=== PATIENT | male | born 1965 | race African-American/Black ===

== ENCOUNTER 2017-02-12 06:42 | Inpatient (IN) | payer OTHER ==
[2017-02-10 15:09] LABS: HEMATOCRIT 41.1 % (40.0-51.0); HEMOGLOBIN 14.1 g/dL (13.6-17.8)
[2017-02-10 15:28] LABS: CALCIUM, SERUM 9.7 MG/DL (8.5-10.4); CHLORIDE, SERUM 107 MMOL/L (96-112); CO2 (CARBON DIOXIDE) 33 MMOL/L (24-34); CREATININE 1.31 MG/DL (0.70-1.30); GFR AFRICAN AMERICAN 72 ML/MIN (>=60); GFR NON AFRICAN AMERICAN 62 ML/MIN (>=60); GLUCOSE, SERUM 104 MG/DL (60-99); POTASSIUM, SERUM 3.8 MMOL/L (3.5-5.3)
[2017-02-10 15:29] LABS: BUN (BLOOD UREA NITROGEN) 16 MG/DL (6-23); SODIUM, SERUM 145 MMOL/L (135-148)
--- NOTE | ~2017-02-12 | DS ---
Discharge Summary [facility] [address] [place]. [address] NAME: ELIECER BELL : 63 STATUS : DIS IN PAT#: [id number] AGE: 51 ADM/REG DATE : 02/12/17 MR#: [id number] REPORT SERV DATE: 02/24/17 DICTATED BY: WALT BARRETO II DATE: 02/23/17 REPORT STATUS : Draft TRANSCRIBED BY: RUFINO DATE: 02/23/17 Data Collection from hospitalization DISCHARGE DIAGNOSES: 1. Severe back pain-discogenic. 2. 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 3. Right greater than left lower extremity radiculopathy. 4. Recurrent stenosis, L5-S1. 5. Small chronic pseudomeningocele, L4-L5. 6. Hypertension. 7. Asthma and bronchitis. 8. Gastroesophageal reflux disease. CONSULTATIONS: None. PROCEDURES PERFORMED: Revision facetectomy for decompression of the L5 and S1 nerve roots; interbody arthrodesis, L5-S1; application of prosthetic device, L5-S1; posterolateral arthrodesis, L4-5 and L5-S1; posterior segmental instrumentation, L4-5 and L5-S1; use of local autograft, allograft substitute, and bone morphogenetic protein; use of microscope and stereotactic spinal imaging, 02/12/2017. PATHOLOGY: Spine, lumbar bone, and tissue-fibrocartilage consistent with intervertebral disk. Benign bone fragments with degenerative changes. MEDICATIONS: ProAir two puffs via inhaler as needed, Hygroton 25 mg every morning, vitamin B12 1000 mcg every morning, Valium 2 mg every six to eight hours as needed, Voltaren 75 mg daily as needed, Advair Diskus one puff via inhaler twice a day, Neurontin 600 mg every six hours, Cozaar 50 mg twice a day, Singulair 10 mg every evening, Zofran 4 mg every six hours as needed, Roxicodone 15 mg every four hours as needed, OxyContin 40 mg every 12 hours, Protonix 40 mg daily as needed. CONDITION AT DISCHARGE: Stable. DISPOSITION: The patient was discharged home on a regular diet with activities as instructed. He would follow up with me, 03/10/2017. HOSPITAL COURSE: This is a 51-year-old man, who had complained of lumbar spine-related symptoms. The pain was located in his low back with radiation down the right lower extremity with associated numbness. The patient has severe back pain that is discogenic. He has facet instability at L4-5 and L5-S1. He has a history of multiple lumbar laminectomy. He has right greater than left lower extremity radiculopathy. He has recurrent stenosis at L5-S1. Treatment options were discussed and it was elected to proceed with surgical intervention. He was admitted to the hospital at this time for further evaluation and treatment. Upon admission, the patient was taken to the operating room, where he underwent the above- mentioned procedure. He tolerated this well and there were no complications. On postop day one, he was evaluated by Physical Therapy. His leg pain had decreased. He had no focal Discharge Summary [address] [address] NAME: ELIECER BELL : 63 STATUS : DIS IN PAT#: [id number] AGE: 51 ADM/REG DATE : 02/12/17 MR#: [id number] REPORT SERV DATE: 02/24/17 DICTATED BY: WALT BARRETO II DATE: 02/23/17 REPORT STATUS : Draft TRANSCRIBED BY: RUFINO DATE: 02/23/17 deficits. On postop day two, he continued to do well. He had a normal respiratory effort. He had no leg pain. He said his legs felt great. He did have a bowel movement. Over the next couple of days, he continued to do well. Discharge planning was performed. His abdominal distention was improving. On 02/16/2017, he continued to have bowel movements. His abdominal discomfort had improved. He had no edema. Discharge instructions were given. Due to his improved and stable condition, he was discharged home with the above-stated instructions. Information collected by: Farrah Puente I submit the above information as my discharge summary. ROSA ELENA/SHAQL Walt Barreto II, M.D. / [id number] CC: Markie Perez II, DAVID K
--- NOTE | ~2017-02-12 | OP ---
Record Of Operation [facility] [address] [place]. [address] NAME: LOUIS BELL : 63 STATUS : DIS IN PAT#: [id number] AGE: 51 ADM/REG DATE : 02/12/17 MR#: [id number] REPORT SERV DATE: 02/16/17 DICTATED BY: ANTWAN BARRETO II DATE: 02/16/17 REPORT STATUS : Draft TRANSCRIBED BY: MODL DATE: 02/16/17 DATE OF PROCEDURE: 02/12/2017 PREOPERATIVE DIAGNOSES: 1. Severe back pain, diskogenic. 2. Facet instability, L4-5 and L5-S1, with history of multiple lumbar laminectomies. 3. Right greater than left lower extremity radiculopathy. 4. Recurrent stenosis, L5-S1. POSTOPERATIVE DIAGNOSES: 1. Severe back pain, diskogenic. 2. Facet instability, L4-5 and L5-S1, with history of multiple lumbar laminectomies. 3. Right greater than left lower extremity radiculopathy. 4. Recurrent stenosis, L5-S1. 5. A small chronic pseudomeningocele, L4-L5. PROCEDURE: 1. Revision facetectomy for decompression of the L5 and S1 nerve roots. 2. Interbody arthrodesis, L5-S1. 3. Application of prosthetic device, L5-S1. 4. Posterolateral arthrodesis, L4-5 and L5-S1. 5. Posterior segmental instrumentation, L4-5 and L5-S1. 6. Use of local autograft, allograft substitute, and bone morphogenic protein. 7. Use of the microscope and stereotactic spinal imaging. FLUIDS: 1500 mL LR. ESTIMATED BLOOD LOSS: 100 mL. DRAIN: One drain. COMPLICATIONS: No complications. HISTORY: This is a very friendly 51-year-old gentleman very well known to me through the years. His family member Ml also works at the hospital and is well known to me. Louis has been an excellent patient through the years and has done quite well with his surgery in the past. However, he still has been struggling with leg pain and increasing back pain following his last surgery. We had discussed fusion and even considered it at the last procedure. He was having significant back pain at that time but overall did not want to have a fusion surgery at that point. He had surgery in 2016 and overall had some temporary improvement in his leg pain. This unfortunately was short-lived, and his leg pain returned. Overall, the imaging was consistent with some residual stenosis, particularly at L5-S1 and some at L4-5, but overall, L5-S1 appeared to be his more problematic area. Specifically, this appeared to be where his back pain was coming from as he had significant disk space height loss but also the facet simply appeared to be unstable. He had now had 3 surgeries at that level, and overall, it was my opinion that the facet simply was unstable and likely Record Of Operation [place] [id number] [facility] [address] [place] [place]. [address] NAME: LOUIS BELL : 63 STATUS : DIS IN PAT#: [id number] AGE: 51 ADM/REG DATE : 02/12/17 MR#: [id number] REPORT SERV DATE: 02/16/17 DICTATED BY: ANTWAN BARRETO II DATE: 02/16/17 REPORT STATUS : Draft TRANSCRIBED BY: RUFINO DATE: 02/16/17 had been overly affected through the course of the 3 surgeries and was overall likely giving him his primary pain down the leg. The pain was more consistent with an L5 dermatomal distribution. There was also some significant disk space height loss which did increase the possibility of up-down stenosis. We discussed the risks of surgery and the benefits. Interestingly, he did recover well from the last surgery with the exception of a fairly severe ileus. He was of course concerned about this, and I discussed with him the fact that ileus could happen again and we would do everything in our power to decrease the likelihood of that. Additionally, approximately six to eight weeks after his surgery, he did have a significant soft-tissue deformity which was frankly consistent with CSF. He was seen by one of the extenders and asked if we could try aspirating this. I did so not suspecting it would be very successful, but surprisingly, the fluid although consistent with CSF that day, the soft-tissue abnormality disappeared. However, based upon that, I advised him that we may likely encounter a small tear and/or a pseudomeningocele. PROCEDURE IN DETAIL: After informed consent was obtained, the patient was brought to the operating room at his request and general anesthesia achieved. He was placed in the prone position, and the back was prepped and draped in a sterile fashion. A stereotactic spinal pin was placed into the left iliac crest and the intraoperative CT scan completed. The stereotactic guidance was then used throughout the case. At this point, the incision was made on the right side and the dissection carried down to the fascia. There was no evidence of CSF. The fascia was then incised and a quadrant retractor placed. We then placed a retractor at the L5-S1 and L4-5 levels. The microscope was now brought into place. At this point, we did see a small amount of CSF emanating from a pseudomeningocele-type membrane. This appeared to overlie the laminectomy site. At this point, the facet was now identified at L5-S1. Again, as suspected, it was unstable. The inferior facet was rather loose and almost non-existent. Interestingly, the intraoperative CT scan did show a very large osteophyte emanating from the superior facet. At this point, under the microscope, we were able to then remove the additional portion of the superior facet. This was indeed severely compressing the L5 nerve root. This also appeared to be, again as suspected, part of an up-down stenosis type situation. At this point, a large osteophyte was removed along with the facet. This appeared to be greatly decompress the L5 nerve root. The S1 nerve root itself had some compression upon it which was now alleviated with additional facet removal, but overall, the L5 nerve root appeared to be likely the problem as there was a severe amount of compression upon it with associated edema. At this point, the interbody arthrodesis was initiated with diskectomy and endplate preparation. The prosthetic device was then placed following confirmation of punctate bleeding bone. Please note, we also irrigated the disk space prior to placement of the prosthetic device. Alongside the device, we then placed allograft substitute, some local autograft, and a small portion of bone morphogenic protein. At this point, I had not seen any CSF emanating from the L5-S1 level. We then turned our attention to L4-5. At this point, we then inspected the L4-5 level. The pseudomeningocele was taken down, and there was a small tear identified of approximately 2 x 3 mm. This was in the dorsolateral aspect of the L4-5 area. However, quality of the dura appeared very Record Of Operation [address] [place] [place]. [address] NAME: LOUIS BELL : 63 STATUS : DIS IN [facility]#: [id number] AGE: 51 ADM/REG DATE : 02/12/17 MR#: [id number] REPORT SERV DATE: 02/16/17 DICTATED BY: ANTWAN BARRETO II DATE: 02/16/17 REPORT STATUS : Draft TRANSCRIBED BY: RUFINO DATE: 02/16/17 friable. I did not feel a suture repair would be likely successful. There was this defect I did not believe I could bring together with suture. At this point, I then placed a DuraGen patch. I cut and contoured the patch to fit into the defect just on the interior of the subarachnoid space. This patch appeared to now be able to hopefully contain the fluid. I then placed a separate patch on the exterior of the dura followed by a fat graft. This seemed to then apply the appropriate amount of compression over the repair site. This was done after irrigation of the entire wound. Next, we then placed DuraSeal over the repair site. At this point, we then decorticated the transverse processes of L4-L5 and the sacral ala. Local autograft, allograft substitute, and bone morphogenic protein were then placed along the decorticated surfaces. A deep drain was placed followed by standard closure. The fascia was closed in a watertight manner followed by repeat irrigation and the superficial tissues in standard closure. The patient was then extubated and transferred to PACU in stable condition. The plan will be for rapid mobilization given his history of ileus. The drain itself we will likely leave in for at least one to two weeks in hopes that we can have the fascia nicely reapproximate to try and prevent any external CSF extravasation. MAURA/RUFINO Antwan Barreto II, M.D. / [id number] CC: Markie Perez II, M.D.
[~2017-02-12 06:42] MED LIST: ACIPHEX PO; ADVAIR INH; ALLEGRA180 PO; COZ50 PO; COZAAR100 MG PO; CYANO1000T PO; ENDOCET1 TAB PO; FLEX PO; HCTZ25B PO; HYDROCHLOROT12.5 MG PO; HYGROTON 25 MG25 MG PO; LEVAQUIN750 MG PO; NEUR300 PO; NEUR600 PO; NORCO1 TA2 PO; NORCO1 TAB PO; OXYCON20 PO; PCET PO; PERCOCET1 TA4 PO; PR12.5 PO; PROAIR HFA INH; PROTONIX PO; RELA5 PO; SINGULAIR1 PO; ULTRAM50 PO; V2 PO; V5 PO; VITC500 PO; VOLT75 PO; ZANAFLEX 4 MG TA4 MG PO
[2017-02-16] MEDS ORDERED: ROXICODONE15 MG PO (08:51)
[2017-02-16] MEDS ORDERED: V2 PO (08:53)
[2017-02-16] MEDS ORDERED: OXYCON40 PO (08:59)
[2017-02-16] MEDS ORDERED: ZOFRAN4 PO (09:04)
== END 2017-02-16 10:40 | disposition home or self-care (01) | DRG 460 ==
LOC: SDC/OF 06:42 → PACU 14:52 → 1SO 16:01
PROVIDERS: Orthopaedic Surgery
PROC: 0SG3071 Fusion of Lumbosacral Joint with Autologous Tissue Substitute, Posterior Approach, Posterior Column, Open Approach (ICD-10-PCS; 2017-02-12)
PROC: 0ST20ZZ Resection of Lumbar Vertebral Disc, Open Approach (ICD-10-PCS; 2017-02-12)
PROC: 4A11X4G Monitoring of Peripheral Nervous Electrical Activity, Intraoperative, External Approach (ICD-10-PCS; 2017-02-12)
PROC: 0SG00AJ Fusion of Lumbar Vertebral Joint with Interbody Fusion Device, Posterior Approach, Anterior Column, Open Approach (ICD-10-PCS; principal; 2017-02-12 09:15)
PROC: 0SG30AJ Fusion of Lumbosacral Joint with Interbody Fusion Device, Posterior Approach, Anterior Column, Open Approach (ICD-10-PCS; 2017-02-12 09:15)
PROC: 0SG0071 Fusion of Lumbar Vertebral Joint with Autologous Tissue Substitute, Posterior Approach, Posterior Column, Open Approach (ICD-10-PCS; 2017-02-12 09:15)
DX: M51.16 Intervertebral disc disorders with radiculopathy, lumbar region (principal); G96.19 Other disorders of meninges, not elsewhere classified; I10 Essential (primary) hypertension; G47.33 Obstructive sleep apnea (adult) (pediatric); J45.909 Unspecified asthma, uncomplicated; M48.06 Spinal stenosis, lumbar region; M51.17 Intervertebral disc disorders with radiculopathy, lumbosacral region; Z79.891 Long term (current) use of opiate analgesic; Z79.899 Other long term (current) drug therapy; Z88.2 Allergy status to sulfonamides; Z88.5 Allergy status to narcotic agent
CPT/HCPCS: 80048; 82962; 85014; 85018; 87641; 88304; 88311; 93005; 94640; 97116-GP; 97161-GP; A9270-GY; C1713; C1768; C1769; J0330; J0690; J2250; J2370; J2405; J2550; J2710; J3010

== ENCOUNTER 2017-03-04 05:10 | Emergency (ER) | payer OTHER ==
[~2017-03-04 05:10] MED LIST changes: +OXYCON40 PO; +ROXICODONE15 MG PO; +ZOFRAN4 PO
== END 2017-03-04 05:47 | disposition home or self-care (01) ==
LOC: ER 05:10
DX: T78.40XA Allergy, unspecified, initial encounter (principal); I10 Essential (primary) hypertension; Z88.2 Allergy status to sulfonamides; Z88.5 Allergy status to narcotic agent; Z79.891 Long term (current) use of opiate analgesic; Z79.899 Other long term (current) drug therapy
CPT/HCPCS: 96374; 96375; 99283; A9270-GY; J2930